=== PATIENT | female | born 2000 | race Caucasian/White ===

== ENCOUNTER 2022-01-15 04:07 | Emergency (ER) | payer SELFPAY ==
[2022-01-15] MEDS ORDERED: diphenhydrAMINE 50 MG Cap PO ONE (04:26)
[2022-01-15] MEDS ORDERED: predniSONE 20 MG Tab PO ONE (04:26)
[2022-01-15] MEDS ORDERED: Famotidine 20 MG Tab PO ONE (04:26)
== END 2022-01-15 06:38 | disposition home or self-care (01) ==
LOC: JD.ED 04:07
DX: R23.2 Flushing (principal)
CPT/HCPCS: 99283; A9270; J7512; Q0163

== ENCOUNTER 2022-03-30 19:01 | Emergency (ER) | payer SELFPAY ==
[2022-03-30 20:00] LABS: CORONAVIRUS COVID-19 NAA NEGATIVE (NEGATIVE)
== END 2022-03-30 20:39 | disposition home or self-care (01) ==
LOC: JD.ED 19:01
DX: J10.1 Influenza due to other identified influenza virus with other respiratory manifestations (principal); Z72.0 Tobacco use; Z20.822 Contact with and (suspected) exposure to COVID-19
CPT/HCPCS: 0240U; 99283

== ENCOUNTER 2022-07-04 16:14 | Emergency (ER) | payer SELFPAY ==
[2022-07-04] MEDS ORDERED: Cephalexin 500 MG Cap PO ONE (19:04)
== END 2022-07-04 19:35 | disposition home or self-care (01) ==
LOC: JD.ED 16:14
DX: L08.9 Local infection of the skin and subcutaneous tissue, unspecified (principal)
CPT/HCPCS: 99283; A9270

== ENCOUNTER 2022-07-06 16:22 | Emergency (ER) | payer SELFPAY ==
[2022-07-06] MEDS ORDERED: Ketorolac 30 MG/ML SDV IVPUSH ONE (17:19)
== END 2022-07-06 18:45 | disposition home or self-care (01) ==
LOC: JD.ED 16:22
DX: M79.621 Pain in right upper arm (principal); L03.113 Cellulitis of right upper limb; Z79.899 Other long term (current) drug therapy
CPT/HCPCS: 36415; 80053; 85025; 86140; 93005; 96374; 99283; J1885; 93010; 99284